=== PATIENT | female | born 1965 | race Asian ===

== ENCOUNTER 2017-01-28 11:49 | Emergency (ER) | payer OTHER ==
[~2017-01-28] VITALS: Ht 160 cm; Wt 74.8 kg
[~2017-01-28 11:49] MED LIST: SYN.025 PO
[2017-01-28 12:23] VITALS: BP 124/71
--- NOTE | 2017-01-28 14:59 | NUR ---
PT TAKEN TO BED 3.
--- NOTE | 2017-01-28 15:30 | NUR ---
PT PRESENTS TO ER W/C/O RIGHT FLANK PAIN X5 DAYS. HX PULLED MUSCLE IN RIGHT CHEST, HYPOTHYROIDISM. . DENIES N/V/D; SKIN IS PINK/WARM/DRY; AAOX4 WITH EVEN AND STEADY GAIT; LUNGS CLEAR BL; HR EVEN AND REGULAR; PT DENIES ANY FEVER, CP, SOB, OR COUGH AT THIS TIME; PATIENT STATES PAIN OF 5/10 AT THIS TIME; VSS; PATIENT POSITIONED FOR COMFORT; HOB ELEVATED; BEDRAILS UP X2; BED DOWN. ER MD MADE AWARE OF PT STATUS.
[2017-01-28] MEDS ORDERED: KETOROLAC 60 MG/2 ML VIAL IM ONE (15:40)
[2017-01-28 16:08] VITALS: BP 114/71
--- NOTE | 2017-01-28 16:08 | NUR ---
Patient discharged with v/s stable. Written and verbal after care instructions given and explained. Patient alert, oriented and verbalized understanding of instructions. Ambulatory with steady gait. All questions addressed prior to discharge. ID band removed. Patient advised to follow up with PMD. Rx of MOTRIN, CIPRO given. Patient educated on indication of medication including possible reaction and side effects. Opportunity to ask questions provided and answered.
== END 2017-01-28 16:08 | disposition home or self-care (01) ==
LOC: MED 11:49
DX: N39.0 Urinary tract infection, site not specified (principal); R07.89 Other chest pain; I10 Essential (primary) hypertension
CPT/HCPCS: 81002; 81025; 96372; 99283; J1885

== ENCOUNTER 2019-07-22 15:21 | Emergency (ER) | payer OTHER ==
[~2019-07-22] VITALS: Ht 160 cm; Wt 82.1 kg
[2019-07-22 15:28] VITALS: BP 104/73
--- NOTE | 2019-07-22 15:41 | NUR ---
C/O R SIDE RIB PAIN 9/10 AND TIGHT X3 DAYS. PT DENIES RECENT INJURY. STATES MAY HAVE PULLED A MUSCLE, PT STATES SHE IS VERY ACTIVE, BUT DOES NOT RECALL ANY SPECIFIC EVENT. PT STATES IT HURTS MORE WHEN SHE LAYS DOWN OR TAKES A DEEP BREATH. DIFFICULT TO TAKE DEEP BREATH NOW D/T PAIN WHICH PROMPTED PT TO SEEK TX TODAY. LUNGS CTAB. SKIN INTACT. NO ERYTHEMA AT SITE OF PAIN. NO OBVIOUS DEFORMITY. PT DENIES HOME TX FOR PAIN. HX: NONE RX: NONE
--- NOTE | 2019-07-22 16:00 | NUR ---
ISIDRO DAILEY EVALUATING PT AT BEDSIDE.
[2019-07-22] MEDS ORDERED: ACETAMINOPHEN EXTRA STRENGTH 500 MG TAB PO ONE (16:05)
--- NOTE | 2019-07-22 16:08 | NUR ---
RADIOLOGY HERE TO TAKE PT FOR XRAY.
[2019-07-22 16:48] LABS: EOSINOPHILS # (AUTO) 0.1 K/uL (0-0.4); EOSINOPHILS % (AUTO) 2.4 % (0.0-4.0); HEMATOCRIT 38.1 % (36-48); HEMOGLOBIN 12.6 g/dL (12.0-16.0); LYMPHOCYTES # (AUTO) 1.7 K/uL (2.5-16.5); LYMPHOCYTES % (AUTO) 40.7 % (20.5-51.1); MEAN CORPUSCULAR HEMOGLOBIN 30 pg (27-31); MEAN CORPUSCULAR HGB CONC 33 g/dL (33-37); MEAN CORPUSCULAR VOLUME 90.4 fL (80-94); MONOCYTES # (AUTO) 0.3 K/uL (0.8-1.0); NEUTROPHILS % (AUTO) 48.9 % (42.2-75.2); PLATELET COUNT (AUTO) 190 K/uL (140-450); RED BLOOD CELL COUNT(AUTO) 4.22 MIL/uL (4.20-5.40); RED CELL DISTRIBUTION WIDTH 13.1 % (11.6-13.7); WHITE BLOOD COUNT (AUTO) 4.1 K/uL (4.8-10.8)
[2019-07-22 17:27] LABS: ALBUMIN 3.5 g/dL (3.4-5.0); ANION GAP 11.4 (8-16); CARBON DIOXIDE 27.5 mmol/L (21-32); CREATININE 0.8 mg/dL (0.6-1.3); POTASSIUM 3.9 mmol/L (3.5-5.1); TOTAL BILIRUBIN 0.3 mg/dL (0.0-1.0)
[2019-07-22] MEDS ORDERED: KETOROLAC 30 MG/ML VIAL IM ONE (17:40)
--- NOTE | 2019-07-22 18:11 | NUR ---
ISIDRO DAILEY SPEAKING WITH PATIENT AT BEDSIDE.
--- NOTE | 2019-07-22 19:09 | NUR ---
Pt report given to KIERA WILKERSON. Transfer of care at this time.
--- NOTE | 2019-07-22 19:10 | NUR ---
RECEIVED REPORT FROM KIERA RAMOS. PT SITTING ON BED, VSS AT THIS TIME.
[2019-07-22 20:00] VITALS: BP 133/88
[2019-07-22 20:12] LABS: APPEARANCE,URINE CLEAR (CLEAR); BILIRUBIN,URINE NEGATIVE (NEGATIVE); BLOOD, URINE NEGATIVE (NEGATIVE); COLOR,URINE YELLOW (YELLOW); LEUKOCYTE ESTERASE ,URINE 1+ (NEGATIVE); NITRITE, URINE NEGATIVE (NEGATIVE); UGLUCOSE NEGATIVE (NEGATIVE)
[2019-07-22 20:26] LABS: RBC,URINE NONE SEEN /HPF (0-5); WBC,URINE 0-5 /HPF (0-5)
== END 2019-07-22 20:02 | disposition home or self-care (01) ==
LOC: MED 15:21
DX: N12 Tubulo-interstitial nephritis, not specified as acute or chronic (principal); M79.671 Pain in right foot; E07.9 Disorder of thyroid, unspecified; Z79.899 Other long term (current) drug therapy
CPT/HCPCS: 36415; 71101; 76705; 80053; 81001; 81025; 85025; 87086; 96372; 99284; J1885; Q0092; 81002

== ENCOUNTER 2024-08-27 11:41 | Emergency (ER) | payer BC, OTHER ==
[~2024-08-27] VITALS: Ht 165.1 cm; Wt 86.2 kg
[2024-08-27 11:50] VITALS: BP 126/68; PULSE 63; RESP 18; TEMP 96.9; O2SAT 98
[2024-08-27 13:40] LABS: APPEARANCE,URINE CLEAR (CLEAR); BILIRUBIN,URINE NEGATIVE (NEGATIVE); BLOOD, URINE NEGATIVE (NEGATIVE); COLOR,URINE YELLOW (YELLOW); LEUKOCYTE ESTERASE ,URINE NEGATIVE (NEGATIVE); NITRITE, URINE NEGATIVE (NEGATIVE); PH,URINE 6.5 (5.0-9.0); PROTEIN,URINE NEGATIVE (NEGATIVE); UGLUCOSE NEGATIVE (NEGATIVE); UROBILINOGEN,URINE 0.2 EU/dL (0.2 - 1)
[2024-08-27 14:22] VITALS: BP 131/77; PULSE 58; RESP 18; O2SAT 100
== END 2024-08-27 14:22 | disposition home or self-care (01) ==
LOC: MED 11:41
DX: S93.401A Sprain of unspecified ligament of right ankle, initial encounter (principal); Z79.899 Other long term (current) drug therapy; W19.XXXA Unspecified fall, initial encounter; Y93.89 Activity, other specified; Y92.89 Other specified places as the place of occurrence of the external cause; Y99.8 Other external cause status
CPT/HCPCS: 29505; 73562; 73610; 81003; 99284